=== PATIENT | female | born 1995 | race Caucasian/White ===

== ENCOUNTER 2017-07-31 13:42 | Emergency (ER) | payer MEDICAID ==
[2010-10-23 09:36] VITALS: BMI 21.7
[2017-07-31 14:40] LABS: BASOPHILS 0.3 % (0-2); EOSINOPHILS 2.9 % (0-7); HEMATOCRIT 43.3 % (36.0-48.0); HEMOGLOBIN 14.4 g/dL (12-16); IMMATURE GRANULOCYTES 0.1 % (0-5); LYMPHOCYTES 28.9 % (15-50); MCH 29.7 pg (26.0-34.0); MCHC 33.3 g/dL (31.0-37.0); MCV 89.3 fL (80.0-100.0); MEAN PLATELET VOLUME 10.2 fL (7.4-10.4); MONOCYTES 7.4 % (2-11); NEUTROPHILS 60.4 % (40-80); PLATELET COUNT 276 10x3/uL (130-400); RBC 4.85 10x6/uL (4.00-5.40); WBC 7.5 10x3/uL (4.8-10.8)
[2017-07-31 14:53] LABS: ALBUMIN 3.8 g/dL (3.4-5.0); ALKALINE PHOSPHATASE 84 U/L (46-116); ALT (SGPT) 14 U/L (10-68); BILIRUBIN - TOTAL 0.38 mg/dL (0.2-1.3); CALC OSMOLALITY 275 mosm/kg (275-300); CALCIUM 9.3 mg/dL (8.5-10.1); CARBON DIOXIDE 27.3 mmol/L (21.0-32.0); CHLORIDE - SERUM 102 mmol/L (98-107); CREATINE KINASE 82 UL (21-215); CREATININE - SERUM 0.7 mg/dL (0.6-1.3); GLUCOSE 94 mg/dL (74-106); MAGNESIUM - SERUM 2.1 mg/dL (1.8-2.4); POTASSIUM - SERUM 4.1 mmol/L (3.5-5.1); PROTEIN - SERUM 6.9 g/dL (6.4-8.2); SODIUM 138 mmol/L (136-145); UREA NITROGEN 12 mg/dL (7-18); eGFR NON AFRICAN AMERICAN > 90 mL/min (90-120)
[2017-07-31 15:11] LABS: APPEARANCE HAZY (CLEAR); BILIRUBIN NEGATIVE (NEGATIVE); GLUCOSE NEGATIVE (NEGATIVE); KETONE NEGATIVE (NEGATIVE); NITRITE NEGATIVE (NEGATIVE); PROTEIN NEGATIVE (NEGATIVE); SPECIFIC GRAVITY 1.005 (1.005-1.020); UROBILINOGEN NORMAL (NORMAL)
[2017-07-31 15:16] LABS: BACTERIA FEW /hpf (NONE SEEN); RED CELLS - URINE 25-50 /hpf (0-5); WHITE CELLS - URINE 0-5 /hpf (0-5)
== END 2017-07-31 16:30 | disposition home or self-care (01) ==
LOC: D.ER 13:42
PROVIDERS: Emergency Medicine
DX: R10.11 Right upper quadrant pain (principal)

== ENCOUNTER 2017-08-09 13:08 | Emergency (ER) | payer MEDICAID ==
[2010-10-23 09:36] VITALS: BMI 21.7
[2017-08-09 13:56] LABS: BASOPHILS 0.2 % (0-2); EOSINOPHILS 1.2 % (0-7); HEMATOCRIT 42.8 % (36.0-48.0); HEMOGLOBIN 14.2 g/dL (12-16); IMMATURE GRANULOCYTES 0.2 % (0-5); LYMPHOCYTES 34.1 % (15-50); MCH 30.2 pg (26.0-34.0); MCHC 33.2 g/dL (31.0-37.0); MCV 91.1 fL (80.0-100.0); MEAN PLATELET VOLUME 10.2 fL (7.4-10.4); NEUTROPHILS 55.3 % (40-80); RDW 14.6 % (11.5-14.5); WBC 8.1 10x3/uL (4.8-10.8)
[2017-08-09 14:00] LABS: PLATELET COUNT 356 10x3/uL (130-400)
[2017-08-09 14:06] LABS: AMYLASE - SERUM 49 U/L (25-115); LIPASE 106 U/L (73-393)
[2017-08-09 14:24] LABS: APPEARANCE CLEAR (CLEAR); BILIRUBIN NEGATIVE (NEGATIVE); COLOR YELLOW (YELLOW); GLUCOSE NEGATIVE (NEGATIVE); KETONE NEGATIVE (NEGATIVE); NITRITE NEGATIVE (NEGATIVE); PROTEIN NEGATIVE (NEGATIVE); UROBILINOGEN NORMAL (NORMAL)
[2017-08-09 14:55] LABS: ALBUMIN 4.2 g/dL (3.4-5.0); ALKALINE PHOSPHATASE 87 U/L (46-116); ALT (SGPT) 15 U/L (10-68); BILIRUBIN - TOTAL 0.43 mg/dL (0.2-1.3); CALC OSMOLALITY 280 mosm/kg (275-300); CALCIUM 9.5 mg/dL (8.5-10.1); CARBON DIOXIDE 23.5 mmol/L (21.0-32.0); CHLORIDE - SERUM 104 mmol/L (98-107); CREATININE - SERUM 0.8 mg/dL (0.6-1.3); GLUCOSE 88 mg/dL (74-106); POTASSIUM - SERUM 4.1 mmol/L (3.5-5.1); PROTEIN - SERUM 7.3 g/dL (6.4-8.2); SODIUM 140 mmol/L (136-145); UREA NITROGEN 20 mg/dL (7-18); eGFR NON AFRICAN AMERICAN > 90 mL/min (90-120)
== END 2017-08-09 17:00 | disposition home or self-care (01) ==
LOC: D.ER 13:08
PROVIDERS: Family Medicine
DX: R10.11 Right upper quadrant pain (principal)

== ENCOUNTER 2017-12-12 15:40 | Emergency (ER) | payer MEDICAID ==
[2010-10-23 09:36] VITALS: BMI 21.7
[2017-12-12 16:04] LABS: APPEARANCE HAZY (CLEAR); BILIRUBIN NEGATIVE (NEGATIVE); COLOR YELLOW (YELLOW); GLUCOSE NEGATIVE (NEGATIVE); KETONE NEGATIVE (NEGATIVE); NITRITE NEGATIVE (NEGATIVE); PROTEIN NEGATIVE (NEGATIVE); UROBILINOGEN NORMAL (NORMAL)
[2017-12-12 16:10] LABS: RED CELLS - URINE RARE /hpf (0-5); WHITE CELLS - URINE 0-5 /hpf (0-5)
[2017-12-12 16:11] LABS: BACTERIA MODERATE /hpf (NONE SEEN); HYALINE CAST RARE /lpf (NONE SEEN); MUCUS >1+ /lpf (NONE SEEN)
[2017-12-12 16:12] LABS: BASOPHILS 0.4 % (0-2); EOSINOPHILS 1.5 % (0-7); HEMATOCRIT 43.7 % (36.0-48.0); HEMOGLOBIN 14.6 g/dL (12-16); IMMATURE GRANULOCYTES 0.1 % (0-5); LYMPHOCYTES 45.1 % (15-50); MCH 31.3 pg (26.0-34.0); MCHC 33.4 g/dL (31.0-37.0); MCV 93.6 fL (80.0-100.0); MEAN PLATELET VOLUME 10.1 fL (7.4-10.4); MONOCYTES 7.9 % (2-11); PLATELET COUNT 309 10x3/uL (130-400); RBC 4.67 10x6/uL (4.00-5.40); WBC 7.3 10x3/uL (4.8-10.8)
[2017-12-12 16:52] LABS: ANION GAP 12.2 mmol/L (8-16); BILIRUBIN - TOTAL 0.3 mg/dL (0.2-1.3); CALCIUM 9.4 mg/dL (8.5-10.1); CARBON DIOXIDE 25.9 mmol/L (21.0-32.0); CREATININE - SERUM 1.2 mg/dL (0.6-1.3); POTASSIUM - SERUM 4.1 mmol/L (3.5-5.1); PROTEIN - SERUM 7.4 g/dL (6.4-8.2)
== END 2017-12-12 18:44 | disposition home or self-care (01) ==
LOC: D.ER 15:40
PROVIDERS: Family Medicine
DX: R10.11 Right upper quadrant pain (principal); R10.9 Unspecified abdominal pain

== ENCOUNTER 2018-05-18 15:42 | Emergency (ER) | payer MEDICAID ==
[~2018-05-18] VITALS: Ht 160 cm; Wt 63.6 kg
[2018-05-18 16:19] VITALS: Ht 160 cm; Wt 63.6 kg
[2018-05-18] MEDS ORDERED: VALIUM10 MG PO (16:20)
[2018-05-18 16:56] LABS: APPEARANCE CLEAR (CLEAR); BILIRUBIN NEGATIVE (NEGATIVE); COLOR YELLOW (YELLOW); GLUCOSE NEGATIVE (NEGATIVE); KETONE NEGATIVE (NEGATIVE); NITRITE NEGATIVE (NEGATIVE); PROTEIN NEGATIVE (NEGATIVE); UROBILINOGEN NORMAL (NORMAL)
[2018-05-18 17:04] LABS: BASOPHILS 0.2 % (0-2); EOSINOPHILS 0.4 % (0-7); HEMATOCRIT 45.7 % (36.0-48.0); HEMOGLOBIN 15.5 g/dL (12-16); IMMATURE GRANULOCYTES 0.2 % (0-5); LYMPHOCYTES 27.6 % (15-50); MCHC 33.9 g/dL (31.0-37.0); MCV 94.2 fL (80.0-100.0); MEAN PLATELET VOLUME 9.8 fL (7.4-10.4); MONOCYTES 7.5 % (2-11); NEUTROPHILS 64.1 % (40-80); PLATELET COUNT 366 10x3/uL (130-400); RBC 4.85 10x6/uL (4.00-5.40); RDW 12.7 % (11.5-14.5); WBC 10.4 10x3/uL (4.8-10.8)
[2018-05-18 17:19] LABS: ALKALINE PHOSPHATASE 85 U/L (46-116); ALT (SGPT) 17 U/L (10-68); AMYLASE - SERUM 73 U/L (25-115); BILIRUBIN - TOTAL 0.25 mg/dL (0.2-1.3); CALC OSMOLALITY 283 mosm/kg (275-300); CALCIUM 9.2 mg/dL (8.5-10.1); CARBON DIOXIDE 26.3 mmol/L (21.0-32.0); CHLORIDE - SERUM 104 mmol/L (98-107); CREATININE - SERUM 0.8 mg/dL (0.6-1.3); GLUCOSE 97 mg/dL (74-106); LIPASE 267 U/L (73-393); POTASSIUM - SERUM 3.9 mmol/L (3.5-5.1); PROTEIN - SERUM 7.8 g/dL (6.4-8.2); SODIUM 141 mmol/L (136-145); UREA NITROGEN 21 mg/dL (7-18); eGFR NON AFRICAN AMERICAN > 90 mL/min (90-120)
[2018-05-18] MEDS ORDERED: COMPAZINE5 MG PO (19:58)
[2018-05-18] MEDS ORDERED: BENTYL 20 MG TA20 MG PO (19:58)
[2018-05-18 20:12] VITALS: BP 111/88
== END 2018-05-18 20:12 | disposition home or self-care (01) ==
LOC: D.ER 15:42
PROVIDERS: Emergency Medicine
DX: K29.70 Gastritis, unspecified, without bleeding (principal); R11.2 Nausea with vomiting, unspecified; G40.909 Epilepsy, unspecified, not intractable, without status epilepticus; F17.200 Nicotine dependence, unspecified, uncomplicated

== ENCOUNTER 2018-07-26 20:22 | Emergency (ER) | payer MEDICAID ==
[~2018-07-26] VITALS: Ht 160 cm; Wt 65.8 kg
[~2018-07-26 20:22] MED LIST: BENTYL 20 MG TA20 MG PO; COMPAZINE5 MG PO; VALIUM10 MG PO
[2018-07-26 20:33] VITALS: BP 132/75; Ht 160 cm; Wt 65.8 kg
[2018-07-26] MEDS ORDERED: KLONOPIN0.5 MG PO (20:34)
== END 2018-07-26 21:34 | disposition left against medical advice (07) ==
LOC: D.ER 20:22
DX: R10.9 Unspecified abdominal pain (principal)

== ENCOUNTER 2019-07-08 03:50 | Emergency (ER) | payer MEDICAID ==
[~2019-07-08] VITALS: Ht 160 cm; Wt 81.6 kg
[~2019-07-08 03:50] MED LIST changes: +KLONOPIN0.5 MG PO
[2019-07-08 03:55] VITALS: Ht 160 cm; Wt 81.6 kg
[2019-07-08] MEDS ORDERED: PAXIL10 MG PO (03:58)
[2019-07-08 04:08] LABS: BASOPHILS 0.1 % (0-2); EOSINOPHILS 0.2 % (0-7); HEMATOCRIT 43.3 % (36.0-48.0); HEMOGLOBIN 14.3 g/dL (12-16); IMMATURE GRANULOCYTES 0.2 % (0-5); LYMPHOCYTES 24.9 % (15-50); MCV 93.9 fL (80.0-100.0); MEAN PLATELET VOLUME 10.2 fL (7.4-10.4); MONOCYTES 6.9 % (2-11); NEUTROPHILS 67.7 % (40-80); PLATELET COUNT 328 10x3/uL (130-400); RBC 4.61 10x6/uL (4.00-5.40); RDW 13.2 % (11.5-14.5); WBC 13.6 10x3/uL (4.8-10.8)
[2019-07-08 04:16] LABS: CALC OSMOLALITY 279 mosm/kg (275-300); CALCIUM 9.2 mg/dL (8.5-10.1); CARBON DIOXIDE 22.7 mmol/L (21.0-32.0); CHLORIDE - SERUM 104 mmol/L (98-107); CREATININE - SERUM 0.7 mg/dL (0.6-1.3); GLUCOSE 100 mg/dL (74-106); POTASSIUM - SERUM 3.5 mmol/L (3.5-5.1); SODIUM 139 mmol/L (136-145); UREA NITROGEN 18 mg/dL (7-18); eGFR NON AFRICAN AMERICAN > 90 mL/min (90-120)
[2019-07-08 04:19] LABS: HCG URINE NEGATIVE (NEGATIVE)
[2019-07-08 04:26] LABS: APPEARANCE CLOUDY (CLEAR); BACTERIA MANY /hpf (NEGATIVE); BILIRUBIN NEGATIVE (NEGATIVE); COLOR YELLOW (YELLOW); EPITHELIAL CELLS NSEEN /hpf (0-5); GLUCOSE NEGATIVE (NEGATIVE); KETONE NEGATIVE (NEGATIVE); NITRITE NEGATIVE (NEGATIVE); PROTEIN NEGATIVE (NEGATIVE); RED CELLS - URINE OCC /hpf (0-5); SPECIFIC GRAVITY 1.005 (1.005-1.020); UROBILINOGEN NORMAL (NORMAL); WHITE CELLS - URINE RARE /hpf (NEGATIVE)
[2019-07-08 04:26] LABS: ALKALINE PHOSPHATASE 75 U/L (46-116); ALT (SGPT) 17 U/L (10-68); BILIRUBIN - TOTAL 0.35 mg/dL (0.2-1.3); LIPASE 120 U/L (73-393)
[2019-07-08 04:27] LABS: UDS - AMPHET NEGATIVE QUAL (NEGATIVE); UDS - BARB NEGATIVE QUAL (NEGATIVE); UDS - BENZO NEGATIVE QUAL (NEGATIVE); UDS - COCAINE NEGATIVE QUAL (NEGATIVE); UDS - OPIATE NEGATIVE QUAL (NEGATIVE); UDS - PCP NEGATIVE QUAL (NEGATIVE); UDS - THC NEGATIVE QUAL (NEGATIVE)
[2019-07-08] MEDS ORDERED: ZOFRAN ODT4 MG/UDTAB PO (06:48)
[2019-07-08 06:52] VITALS: BP 124/69
== END 2019-07-08 06:53 | disposition home or self-care (01) ==
LOC: D.ER 03:50
PROVIDERS: Family Medicine
DX: R10.32 Left lower quadrant pain (principal)

== ENCOUNTER 2020-02-29 12:04 | Emergency (ER) | payer MEDICAID ==
[~2020-02-29] VITALS: Ht 160 cm; Wt 77.3 kg
[~2020-02-29 12:04] MED LIST changes: +LOMOTIL 2.5-0.1 EAC1 PO; +MACROBID100 MG PO; +PAXIL10 MG PO; +ZOFRAN ODT4 MG/UDTAB PO
[2020-02-29 12:16] VITALS: Ht 160 cm; Wt 77.3 kg
[2020-02-29 13:15] LABS: BASOPHILS 0.1 % (0-2); EOSINOPHILS 0.2 % (0-7); HEMATOCRIT 44.1 % (36.0-48.0); HEMOGLOBIN 14.5 g/dL (12-16); IMMATURE GRANULOCYTES 0.1 % (0-5); LYMPHOCYTES 15.5 % (15-50); MCHC 32.9 g/dL (31.0-37.0); MCV 97.4 fL (80.0-100.0); MONOCYTES 8.2 % (2-11); NEUTROPHILS 75.9 % (40-80); PLATELET COUNT 310 10x3/uL (130-400); RBC 4.53 10x6/uL (4.00-5.40); WBC 8.3 10x3/uL (4.8-10.8)
[2020-02-29 13:33] LABS: CALC OSMOLALITY 272 mosm/kg (275-300); CALCIUM 9.5 mg/dL (8.5-10.1); CARBON DIOXIDE 27.2 mmol/L (21.0-32.0); CHLORIDE - SERUM 101 mmol/L (98-107); CREATININE - SERUM 0.8 mg/dL (0.6-1.3); GLUCOSE 95 mg/dL (74-106); POTASSIUM - SERUM 3.9 mmol/L (3.5-5.1); SODIUM 136 mmol/L (136-145); UREA NITROGEN 16 mg/dL (7-18); eGFR NON AFRICAN AMERICAN > 90 mL/min (90-120)
[2020-02-29 13:35] LABS: HCG SERUM NEGATIVE (NEGATIVE)
[2020-02-29 13:47] LABS: ALBUMIN 4.2 g/dL (3.4-5.0); ALKALINE PHOSPHATASE 75 U/L (30-120); ALT (SGPT) 13 U/L (10-68); AMYLASE - SERUM 45 U/L (25-115); BILIRUBIN - TOTAL 0.39 mg/dL (0.2-1.3); LIPASE 101 U/L (73-393); PROTEIN - SERUM 7.8 g/dL (6.4-8.2); TROPONIN-I < 0.017 ng/mL (0.000-0.060)
[2020-02-29 13:56] LABS: HCG URINE NEGATIVE (NEGATIVE)
[2020-02-29 14:04] LABS: BILIRUBIN NEGATIVE (NEGATIVE); GLUCOSE NEGATIVE (NEGATIVE); KETONE NEGATIVE (NEGATIVE); NITRITE NEGATIVE (NEGATIVE); SPECIFIC GRAVITY 1.015 (1.005-1.020); UROBILINOGEN NORMAL (NORMAL)
[2020-02-29 14:05] LABS: BACTERIA MODERATE /hpf (NEGATIVE); RED CELLS - URINE NONE SEEN /hpf (0-5); WHITE CELLS - URINE OCC /hpf (NEGATIVE)
[2020-02-29 19:09] VITALS: BP 120/80
== END 2020-02-29 19:04 | disposition home or self-care (01) ==
LOC: D.ER 12:04
PROVIDERS: Family Medicine
DX: R10.32 Left lower quadrant pain (principal); M79.605 Pain in left leg